=== PATIENT | male | born 1965 | race American Indian/Alaskan Native ===

== ENCOUNTER 2021-03-07 23:35 | Inpatient (IN) | payer OTHER ==
[2021-03-08] MEDS ORDERED: HYDROcodone/ACETAMINOPHEN 5-325 MG TAB PO STA (05:36)
--- NOTE | 2021-03-08 07:00 | Emergency Department Report ---
<GIO SHETTY - Last Filed: 03/08/21 07:40> ED General Adult HPI - General Chief complaint: Headache Stated complaint: WEAKNESS/MIGRAINE/LT LEG SWOLLEN Time Seen by Provider: 03/08/21 05:38 Source: patient Mode of arrival: Ambulatory Limitations: No Limitations - History of Present Illness Initial comments: 55-year-old obese -[place] Citizen male with a complex car medical problems including diabetes, hypertension,, HIV, hyperparathyroidism, migraine, venous insufficiency. Presents emerge department complaining of pain swelling to the left lower extremity after a venous correction procedure which was done about a week or 2 ago. States that after the area was cauterized he began to have some pain but and throbbing now is red swollen and tender with some mild warmth but he reports no fever, chills, sweats no chest pain or palpitation. No known history of any DVTs very suspicious at this present time due to the amount of pain that radiated up towards his calf as well. Symptoms get worse with ambulation. - Related Data Allergies Allergy/AdvReac Type Severity Reaction Status Date / Time No Known Allergies Allergy Verified 06/26/16 04:47 ED Review of Systems Comment: All other systems reviewed and negative ED Past Medical Hx - Past Medical History Previous Medical History?: Yes Hx Hypertension: Yes Hx Diabetes: Yes Hx Asthma: Yes Hx HIV: Yes - Surgical History Past Surgical History?: Yes Additional Surgical History: LEFT FOOT - Social History Smoking Status: Never Smoker Substance Use Type: None ED Physical Exam - General Limitations: No Limitations General appearance: alert, in no apparent distress - Head Head exam: Present: atraumatic, normocephalic - Eye Eye exam: Present: normal appearance - ENT ENT exam: Present: mucous membranes moist - Neck Neck exam: Present: normal inspection - Respiratory Respiratory exam: Present: normal lung sounds bilaterally. Absent: respiratory distress - Cardiovascular Cardiovascular Exam: Present: regular rate, normal rhythm. Absent: systolic mu rmur, diastolic murmur, rubs, gallop - GI/Abdominal GI/Abdominal exam: Present: soft, normal bowel sounds - Rectal Rectal exam: Present: deferred - Extremities Exam Extremities exam: Present: normal inspection, tenderness, joint swelling, calf tenderness - Expanded Lower Extremity Exam Left Lower Leg exam: Present: full ROM, tenderness, swelling, erythema, Rubina's sign. Absent: abrasion, laceration, ecchymosis, deformity Ankle exam: Present: normal inspection Neuro vascular tendon exam: Absent: pulse deficit, sensory deficit, tendon deficit, extremity cold to touch 1 - Redness to this region with on the relation with some warmth. There is pain with Homans' sign however there is no cord sign. Pulses 2+2 to the dorsalis pedis and posterior tibialis. Capillary refills appear to be brisk patient is wearing black toenail peruvian this was assessed on skin. - Back Exam Back exam: Present: normal inspection. Absent: CVA tenderness (R), CVA tenderness (L) - Neurological Exam Neurological exam: Present: alert, oriented X3, CN II-XII intact, normal gait - Psychiatric Psychiatric exam: Present: normal affect, normal mood - Skin Skin exam: Present: warm, dry, intact, normal color. Absent: rash ED Medical Decision Making - Medical Decision Making 30-year-old male pain swelling to left lower extremity with warmth following a venous procedure. Possibility of a DVT is present. The patient is on blood thinners already so this may be unlikely as he may be dealing with his vasculitis. Still pending is the ultrasound. We will sign the patient out to my colleague Jose who will evaluate the ultrasound and definitive diagnosis. Diagnosis at this present time is either a DVT or a vasculitis/thrombophlebitis ED Disposition Clinical Impression: Left leg cellulitis Sepsis Qualifiers: Sepsis type: sepsis due to unspecified organism Sepsis acute organ dysfunction status: without acute organ dysfunction Qualified Code(s): A41.9 - Sepsis, unspecified organism Disposition: DC-09 OP ADMIT IP TO THIS HOSP Is pt being admited?: No Does the pt Need Aspirin: No Condition: Stable Referrals: PRIMARY CARE, [Primary Care Provider] - 3-5 Days <JOSE JO - Last Filed: 03/08/21 10:22> ED General Adult HPI - History of Present Illness Initial comments: This is a 55-year-old male nontoxic, well nourished in appearance, no acute signs of distress presents to the ED with c/o of left leg pain and swelling with redness times several days. Patient does have history of venous insufficiency and had a procedure 4 years ago. Patient denies any procedure 2 weeks ago. Patient otherwise denies any trauma or injuries. Patient denies any history of DVTs. Patient agrees to chills. Past medical history also is HIV. Patient denies any chest pain, shortness of breath, fever, chills, nausea, vomiting, headache, stiff neck, numbness or tingling. -: days(s) Location: lower extremity Radiation: non-radiation Severity scale (0 -10): 8 Quality: aching Consistency: constant Improves with: none Worsens with: none Associated Symptoms: denies other symptoms. denies: confusion, chest pain, cough, diaphoresis, fever/chills, headaches, loss of appetite, malaise, nausea/vomiting, rash, seizure, shortness of breath, syncope, weakness Treatments Prior to Arrival: none ED Review of Systems ROS: Stated complaint: WEAKNESS/MIGRAINE/LT LEG SWOLLEN Other details as noted in HPI Constitutional: chills. denies: fever Eyes: denies: eye pain, eye discharge, vision change ENT: denies: ear pain, throat pain Respiratory: denies: cough, shortness of breath, wheezing Cardiovascular: denies: chest pain, palpitations Endocrine: no symptoms reported Gastrointestinal: denies: abdominal pain, nausea, diarrhea Genitourinary: denies: urgency, dysuria Musculoskeletal: denies: back pain, joint swelling, arthralgia Skin: denies: rash, lesions Neurological: denies: headache, weakness, paresthesias Psychiatric: denies: anxiety, depression Hematological/Lymphatic: denies: easy bleeding, easy bruising ED Physical Exam - General General appearance: alert, in no apparent distress - Head Head exam: Present: atraumatic, normocephalic - Eye Eye exam: Present: normal appearance - ENT ENT exam: Present: normal exam - Neck Neck exam: Present: normal inspection, full ROM. Absent: lymphadenopathy - Respiratory Respiratory exam: Present: normal lung sounds bilaterally. Absent: respiratory distress, wheezes, rales, rhonchi, stridor, chest wall tenderness, accessory muscle use, decreased breath sounds, prolonged expiratory - Cardiovascular Cardiovascular Exam: Present: normal rhythm, tachycardia, normal heart sounds. Absent: irregular rhythm, systolic murmur, diastolic murmur, rubs, gallop - GI/Abdominal GI/Abdominal exam: Present: soft, normal bowel sounds. Absent: distended, tenderness - Rectal Rectal exam: Present: deferred - Extremities Exam Extremities exam: Present: normal inspection, full ROM, tenderness, normal capillary refill, pedal edema, joint swelling, calf tenderness - Expanded Lower Extremity Exam Left Hip exam: Present: normal inspection, full ROM. Absent: tenderness, swelling Upper Leg exam: Present: normal inspection, full ROM. Absent: tenderness, swelling Knee exam: Present: normal inspection, full ROM. Absent: tenderness, swelling Lower Leg exam: Present: full ROM, tenderness, swelling, erythema, Rubina's sign. Absent: crepidus, dislocation, palpable cord Ankle exam: Present: normal inspection, full ROM, swelling. Absent: tenderness, abrasion, laceration, ecchymosis, deformity, crepidus, dislocation, erythema, anterior draw sign Foot/Toe exam: Present: normal inspection, full ROM. Absent: tenderness, swelling Neuro vascular tendon exam: Present: no vascular compromise Gait: Positive: observed and limited by pain 1 - Cellulitis with pain and swelling - Back Exam Back exam: Present: normal inspection - Neurological Exam Neurological exam: Present: alert, oriented X3 - Psychiatric Psychiatric exam: Present: normal affect, normal mood - Skin Skin exam: Present: warm, dry, intact, normal color. Absent: rash ED Course Vital Signs 03/08/21 03/08/21 00:39 08:19 Temperature 99.9 F H 99.8 F H Pulse Rate 125 H 118 H Respiratory 18 19 Rate Blood Pressure 144/88 Blood Pressure 154/92 [Right] O2 Sat by Pulse 95 94 Oximetry - Reevaluation(s) Reevaluation #1: 03/08/21 08:17 Patient was originally seen by Getachew Shetty and was signed out to me for pending Doppler study. I reentered the patient's room, patient is tachycardic with fever and left leg there is swelling with surrounding cellulitis noted. Sepsis work-up will be ordered at this time. Patient is speaking in full sentences with no signs of distress noted. - Consultations Consultation #1: 03/08/21 09:46 Patient has been consulted with Dr. Cota (hospitalist) about patient h istory, physical exam, and labs and accepts patient to services for admission. ED Medical Decision Making - Lab Data Result diagrams: 03/08/21 08:39 03/08/21 08:39 Lab Results 03/08/21 03/08/21 03/08/21 Range/Units 08:39 08:39 08:39 WBC 14.7 H (4.5-11.0) K/mm3 RBC 4.63 (3.65-5.03) M/mm3 Hgb 14.4 (11.8-15.2) gm/dl Hct 41.5 (35.5-45.6) % MCV 90 (84-94) fl MCH 31 (28-32) pg MCHC 35 H (32-34) % RDW 12.9 L (13.2-15.2) % Plt Count 231 (140-440) K/mm3 Sodium 135 L (137-145) mmol/L Potassium 3.6 (3.6-5.0) mmol/L Chloride 98.5 (98-107) mmol/L Carbon Dioxide 24 (22-30) mmol/L Anion Gap 16 mmol/L BUN 18 (9-20) mg/dL Creatinine 1.0 (0.8-1.3) mg/dL Estimated GFR > 60 ml/min BUN/Creatinine Ratio 18 % Glucose 113 H (75-100) mg/dL Lactic Acid 1.10 (0.7-2.0) mmol/L Calcium 8.6 (8.4-10.2) mg/dL Total Bilirubin 0.90 (0.1-1.2) mg/dL AST 40 (5-40) units/L ALT 35 (7-56) units/L Alkaline Phosphatase 76 (35-129) units/L Total Protein 7.9 (6.3-8.2) g/dL Albumin 3.9 (3.9-5) g/dL Albumin/Globulin Ratio 1.0 % - Radiology Data [facility] [address] [place] [address] Vascular Lab Report Signed Patient: CAMILLE PEDRO MR#: [id number] : 1965 Acct:[id number] Age/Sex: 55 / M ADM Date: 03/07/21 Loc: ED Attending Dr: Lai sesay Physician: KELSEY GARCIA Date of Service: 03/08/21 Procedure(s): VL venous duplex LE LT Accession Number(s): [id number] cc: KELSEY GARCIA DUPLEX DOPPLER LOWER EXTREMITY VEINS, LEFT INDICATION / CLINICAL INFORMATION: swelling and rednesss. TECHNIQUE: Duplex doppler imaging was performed through the veins of the left lower extremity using venous compression and other maneuvers. COMPARISON: None available. FINDINGS: LEFT COMMON FEMORAL VEIN: Negative. LEFT FEMORAL VEIN: Negative. LEFT POPLITEAL VEIN: Negative. LEFT CALF VEINS: Negative. ADDITIONAL FINDINGS: None. IMPRESSION: 1. No sonographic evidence for DVT in the left lower extremity. Signer Name: Davon Malagon MD Signed: 03/08/2021 8:07 AM Workstation Name: [id number] Transcribed By: CH Dictated By: DAVON MALAGON Electronically Authenticated By: DAVON MALAGON Signed Date/Time: 03/08/21806 DD/ 6 TD/TT: [facility] [address] [place] [address] XRay Report Signed Patient: CAMILLE PEDRO MR#: [id number] : 1965 Acct:[id number] Age/Sex: 55 / M ADM Date: 03/07/21 Loc: ED Attending Dr: Ordering Physician: JOSE JO NP Date of Service: 03/08/21 Procedure(s): XR tibia fibula 2V LT Accession Number(s): [id number] cc: JOSE JO NP Fluoro Time In Minutes: LEFT TIBIA-FIBULA 2 VIEW(S) INDICATION / CLINICAL INFORMATION: left leg pain and swelling COMPARISON: None available. FINDINGS: BONES / JOINT (S): No acute fracture or subluxation. Moderate tricompartmental arthrosis noted at the knee. Prior subtalar arthrodesis noted. SOFT TISSUES: Generalized soft tissue swelling and edema noted throughout the visualized leg ADDITIONAL FINDINGS: None. Signer Name: Davon Malagon MD Signed: 03/08/2021 9:15 AM Workstation Name: [id number] Transcribed By: KANDICE Dictated By: DAVON MALAGON Electronically Authenticated By: DAVON MALAGON Signed Date/Time: 03/08/21914 DD/ 2 TD/TT: [facility] [address] [place] [address] XRay Report Signed Patient: CAMILLE PEDRO MR#: [id number] : 1965 Acct:[id number] Age/Sex: 55 / M ADM Date: 03/07/21 Loc: ED Attending Dr: Ordering Physician: JOSE JO NP Date of Service: 03/08/21 Procedure(s): XR chest routine 2V Accession Number(s): [id number] cc: JOSE JO NP Fluoro Time In Minutes: CHEST 2 VIEWS INDICATION / CLINICAL INFORMATION: sepsis. COMPARISO N: None available. FINDINGS: SUPPORT DEVICES: None. HEART / MEDIASTINUM: No significant abnormality. LUNGS / PLEURA: No significant pulmonary or pleural abnormality. No pneumothorax. No confluent infiltrates. ADDITIONAL FINDINGS: No significant additional findings. IMPRESSION: 1. No acute findings. Signer Name: Davon Malagon MD Signed: 03/08/2021 9:12 AM Workstation Name: [id number] Transcribed By: Dictated By: DAVON MALAGON Electronically Authenticated By: DAVON MALAGON Signed Date/Time: 03/08/21911 DD/ 0 TD/TT: - Medical Decision Making 55-year-old male that presents with cellulitis to left lower extremity. Patient is stable and was examined by me. Patient originally seen by Gio Shetty and was signed out to me for pending ultrasound report for DVT. DVT studies are negative. Has anterior from my physical exam shows that patient has left lower extremity cellulitis. Patient is tachycardic with fever. Sepsis work-up with IV medications has administered and labs ordered. Patient admitted with hospitalist. At time of admission, the patient does not seem toxic or ill in appearance. No acute signs of distress noted. Patient agrees to admission treatment plan of care. No further questions noted by the patient. Critical care attestation.: If time is entered above; I have spent that time in minutes in the direct care of this critically ill patient, excluding procedure time. ED Disposition Is pt being admited?: Yes
--- NOTE | 2021-03-08 08:12 | Vascular Lab Report ---
DUPLEX DOPPLER LOWER EXTREMITY VEINS, LEFT INDICATION / CLINICAL INFORMATION: swelling and rednesss. TECHNIQUE: Duplex doppler imaging was performed through the veins of the left lower extremity using venous compr ession and other maneuvers. COMPARISON: None available. FINDINGS: LEFT COMMON FEMORAL VEIN: Negative. LEFT FEMORAL VEIN: Negative. LEFT POPLITEAL VEIN: Negative. LEFT CALF VEINS: Negative. ADDITIONAL FINDINGS: None. IMPRESSION: 1. No sonographic evidence for DVT in the left lower extremity. Signer Name: Davon Victor MD Signed: 03/08/2021 8:07 AM Workstation Name: [email or web address]
[2021-03-08] MEDS ORDERED: SODIUM CHLORIDE 0.9% 1000 ML IV SOLN IV ONE (08:18)
[2021-03-08] MEDS ORDERED: IBUPROFEN 800 MG TAB PO ONE (08:22)
[2021-03-08] MEDS ORDERED: MORPHINE 2 MG/1 ML INJ IV ONE (08:22)
[2021-03-08 09:16] LABS: Hematocrit 41.5 % (35.5-45.6); Hemoglobin 14.4 gm/dl (11.8-15.2); Mean Corpuscular HGB Conc 35 % (32-34); Mean Corpuscular Volume 90 fl (84-94); Platelet Count 231 K/mm3 (140-440); Red Blood Count 4.63 M/mm3 (3.65-5.03); Red Cell Distribution Width 12.9 % (13.2-15.2)
--- NOTE | 2021-03-08 09:16 | XRay Report ---
CHEST 2 VIEWS INDICATION / CLINICAL INFORMATION: sepsis. COMPARISON: None available. FINDINGS: SUPPORT DEVICES: None. HEART / MEDIASTINUM: No significant abnormality. LUNGS / PLEURA: No significant pulmonary or pleural abnormality. No pneumothorax. No confluent infilt rates. ADDITIONAL FINDINGS: No significant additional findings. IMPRESSION: 1. No acute findings. Signer Name: Davon Victor MD Signed: 03/08/2021 9:12 AM Workstation Name: [id number]
--- NOTE | 2021-03-08 09:19 | XRay Report ---
LEFT TIBIA-FIBULA 2 VIEW(S) INDICATION / CLINICAL INFORMATION: left leg pain and swelling COMPARISON: None available. FINDINGS: BONES / JOINT(S): No acute fracture or subluxation. Moderate tricompartmental arthrosis noted at the knee. Prior subtalar arthrodesis noted. SOFT TISSUES: Generalized soft tissue swelling and edema noted throughout the visualized leg ADDITIONAL FINDINGS: None. Signer Name: Davon Victor MD Signed: 03/08/2021 9:15 AM Workstation Name: [id number]
[2021-03-08 10:01] LABS: Alanine Aminotransferase 35 units/L (7-56); Albumin 3.9 g/dL (3.9-5); BUN/Creatinine Ratio 18; Blood Urea Nitrogen 18 mg/dL (9-20); Calcium 8.6 mg/dL (8.4-10.2); Hemolysis Index 7
[2021-03-08 10:47] LABS: Total Cells Counted 100
[2021-03-08 10:48] LABS: Platelet Estimate Consistent w Auto; RBC Morphology Normal
--- NOTE | 2021-03-08 12:08 | History and Physical Report ---
History of Present Illness Chief complaint: My left leg is red and it hurts a little History of present illness: 55 YO Male with HTN, DM, Asthma, HIV, Obesity Hypoventilation Syndrome, Hyperparathyroidism, Migraine HUDSON, PVD presents to ED for evaulation. Patient reports "my left leg is red and it hurts". Patient states that he has experienced swelling and redness of his left leg over the past 1 week with worsening symptoms over the past 2 days. Patient reports having a vascular surgery procedure to the left lower extremity approximately 1 week ago. Patient reports the pain to the left leg is 3/10, constant, not with exertion, not relieved with rest. Patient acknowledges redness and swelling to the left leg. Patient also acknowledges decreased exercise tolerance. Patient transported to [facility] via private vehicle for further care and evaluation of the aforementioned symptoms. The patient was seen and evaluated in the emergency department. All lab and imaging studies reviewed. Patient found to have cellulitis of the left lower extremity, sepsis, as well as symptoms consistent with CHF decompensation. Patient admitted to medical floor and initiated on sepsis protocol as well as CHF protocol. Patient denies fever, chills, chest pain, palpitation, productive cough, skin rash, recent ill contacts, or known exposure to COVID-19. No prior admission for review. No medication listed at time of admission for reconciliation. Past History Past Medical History: diabetes, HIV/AIDS, hypertension, other (See HPI) Past Surgical History: Other (Left leg surgery) Social history: single. denies: smoking, alcohol abuse, prescription drug abuse Family history: diabetes, hypertension Medications and Allergies Allergies Allergy/AdvReac Type Severity Reaction Status Date / Time No Known Allergies Allergy Verified 06/26/16 04:47 Home Medications Medication Instructions Recorded Confirmed Last Taken Type Amlodipine Besylate/Benazepril 1 each PO QDAY 03/08/21 03/08/21 Unknown History [Amlodipine-Benazepril 5-10 mg] AtorvaSTATin [Lipitor] 10 mg PO QHS 03/08/21 03/08/21 Unknown History Bictegrav/Emtricit/Tenofov Ala 1 each PO QDAY 03/08/21 03/08/21 Unknown History [Biktarvy 50-200-25 mg (Nf)] Meloxicam [Mobic] 15 mg PO QDAY 05/16/21 05/16/21 Unknown History Review of Systems Constitutional: weakness, no weight loss, no weight gain, no fever Ears, nose, mouth and throat: no ear pain, no tinnitis, no decreased hearing, no nose pain, no nasal congestion, no nasal discharge Cardiovascular: decreased exercise tolerance, no chest pain, no palpitations, no lightheadedness Respiratory: no cough, no cough with sputum, no excessive sputum, no hemoptysis Gastrointestinal: no abdominal pain, no nausea, no vomiting, no diarrhea, no constipation, no change in bowel habits Genitourinary Male: no hematuria, no flank pain, no discharge, no urinary frequency, no urinary hesitancy Rectal: no pain, no incontinence, no bleeding Musculoskeletal: no neck stiffness, no shooting arm pain, no low back pain, no shooting leg pain, no leg numbness/tingling Integumentary: redness, no wounds, no jaundice, no boils, no darkening of skin, no depigmentation Neurological: no head injury, no transient paralysis, no paralysis, no parathesias, no numbness, no tingling Psychiatric: no anxiety, no memory loss, no change in sleep habits, no insomnia, no hypersomnia, no change in appetite, no change in libido, no hallucinations Endocrine: no cold intolerance, no heat intolerance, no polyphagia, no excessive thirst, no polyuria, no flushing Hematologic/Lymphatic: no easy bruising, no easy bleeding Allergic/Immunologic: no urticaria, no allergic rhinitis, no wheezing Exam - Constitutional Vitals: Temp Pulse Resp BP Pulse Ox 98.8 F 91 H 16 130/77 96 03/08/21 11:37 03/08/21 11:37 03/08/21 11:37 03/08/21 11:37 03/08/21 11:37 General appearance: Present: mild distress, obese - EENT Eyes: Present: PERRL ENT: hearing intact, clear oral mucosa - Neck Neck: Present: supple, normal ROM - Respiratory Respiratory effort: normal Respiratory: bilateral: CTA - Cardiovascular Heart Sounds: Present: S1 & S2. Absent: rub, click - Extremities Extremities: pulses symmetrical, No edema Peripheral Pulses: abnormal (Capillary refill greater than 3.5 seconds) - Abdominal General gastrointestinal: Present: soft, non-tender, non-distended, normal bowel sounds Male genitourinary: Present: normal - Integumentary Integumentary: Present: clear, warm, dry - Musculoskeletal Musculoskeletal: gait normal, strength equal bilaterally - Psychiatric Psychiatric: appropriate mood/affect, intact judgment & insight - Neurologic Neurologic: CNII-XII intact, moves all extremities Results - Labs CBC & Chem 7: 03/08/21 08:39 03/08/21 08:39 Labs: Abnormal lab results 03/08/21 03/08/21 Range/Units 08:39 08:39 WBC 14.7 H (4.5-11.0) K/mm3 MCHC 35 H (32-34) % RDW 12.9 L (13.2-15.2) % Seg Neuts % (Manual) 86.0 H (40.0-70.0) % Lymphocytes % (Manual) 8.0 L (13.4-35.0) % Seg Neutrophils # Man 12.6 H (1.8-7.7) K/mm3 Monocytes # (Manual) 0.9 H (0.0-0.8) K/mm3 Sodium 135 L (137-145) mmol/L Glucose 113 H (75-100) mg/dL Assessment and Plan - Patient Problems (1) Sepsis Current Visit: Yes Status: Acute Qualifiers: Sepsis type: sepsis due to unspecified organism Sepsis acute organ dysfunction status: without acute organ dysfunction Qualified Code(s): A41.9 - Sepsis, unspecified organism Plan to address problem: Sepsis protocol: Chest x-ray, CBC, BMP, urinalysis, IV antibiotic therapy, IV fluid resuscitation therapy, maintain mean arterial pressure greater than or equal to 65, serial lactic acid level. (2) Obesity hypoventilation syndrome Current Visit: Yes Status: Acute Plan to address problem: Balanced diet, increase physical activity at discharge. (3) CHF (congestive heart failure) Current Visit: Yes Status: Suspected Qualifiers: Heart failure type: systolic Heart failure chronicity: acute Qualified Code(s): I50.21 - Acute systolic (congestive) heart failure Plan to address problem: Strict I/O, monitor urine output every shift, daily weight, afterload reduction, blood pressure control, BNP, echocardiogram ordered and is pending at time of admission. (4) HIV (human immunodeficiency virus infection) Current Visit: Yes Status: Acute Qualifiers: HIV symptom status: currently asymptomatic, with history of HIV-related illness Qualified Code(s): B20 - Human immunodeficiency virus [HIV] disease Plan to address problem: Outpatient infectious disease follow-up, continue antiretroviral therapy, supportive care. (5) Left leg cellulitis Current Visit: Yes Status: Acute Plan to address problem: IV antibiotic therapy, left lower extremity duplex, supportive care, pain control, (6) HTN (hypertension) Current Visit: Yes Status: Acute Qualifiers: Hypertension type: essential hypertension Qualified Code(s): I10 - Essential (primary) hypertension Plan to address problem: Monitor blood pressure every shift, continue medical management. (7) Diabetes Current Visit: Yes Status: Acute Plan to address problem: Consistent carbohydrate diet, sliding scale insulin therapy, hypoglycemia protocol. (8) DVT prophylaxis Current Visit: Yes Status: Acute Plan to address problem: SCD to bilateral lower extremities while in bed, patient is ambulatory
[2021-03-08 12:35] LABS: Bilirubin,Urine NEG (Negative); Blood,Urine NEG (Negative); Color,Urine Yellow (Yellow)
[2021-03-08] MEDS ORDERED: HYDROmorphone 1 MG/1 ML INJ IV PRN (12:35)
[2021-03-08] MEDS ORDERED: ACETAMINOPHEN 325 MG TAB PO PRN (12:35)
[2021-03-09] MEDS ORDERED: NON-FORMULARY EACH (Bictegrav/Emtricit/Tenofov Ala 1 EACH Tablet) PO SCH (10:00)
[2021-03-09] MEDS ORDERED: NON-FORMULARY EACH (Meloxicam [Mobic] 15 MG Tablet) PO SCH (10:00)
[2021-03-09 10:40] LABS: Basophils # (Auto) 0.1 K/mm3 (0.0-0.1); Basophils % (Auto) 0.5 % (0.0-1.8); Eosinophils % (Auto) 0.3 % (0.0-4.3); Hematocrit 38.8 % (35.5-45.6); Hemoglobin 13.1 gm/dl (11.8-15.2); Lymphocytes # (Auto) 1.8 K/mm3 (1.2-5.4); Lymphocytes % (Auto) 16.8 % (13.4-35.0); Mean Corpuscular HGB Conc 34 % (32-34); Mean Corpuscular Volume 92 fl (84-94); Monocytes # (Auto) 0.9 K/mm3 (0.0-0.8); Monocytes % (Auto) 8.3 % (0.0-7.3); Platelet Count 237 K/mm3 (140-440); Red Blood Count 4.22 M/mm3 (3.65-5.03)
[2021-03-09 10:48] LABS: BUN/Creatinine Ratio 14; Blood Urea Nitrogen 11 mg/dL (9-20); Calcium 8.5 mg/dL (8.4-10.2); Hemolysis Index 1
[2021-03-09] MEDS: LISINOPRIL 10 MG TAB PO SCH (11:00)
[2021-03-09] MEDS: DOLUTEGRAVIR 50 MG TAB PO SCH (11:00)
[2021-03-09] MEDS: amLODIPine 5 MG TAB PO SCH (11:00)
[2021-03-09] MEDS: EMTRICITABINE 200 MG CAP PO SCH (11:00)
[2021-03-09] MEDS: TENOFOVIR 300 MG TAB PO SCH (11:00)
--- NOTE | 2021-03-09 12:02 | Progress Note ---
Assessment and Plan Assessment and plan: 55 YO Male with HTN, DM, Asthma, HIV, Obesity Hypoventilation Syndrome, Hyperparathyroidism, Migraine HUDSON, PVD presents to ED for evaulation. Patient reports "my left leg is red and it hurts". Patient states that he has experienced swelling and redness of his left leg over the past 1 week with worsening symptoms over the past 2 days. Patient reports having a vascular surgery procedure to the left lower extremity approximately 1 week ago. Patient reports the pain to the left leg is 3/10, constant, not with exertion, not relieved with rest. Patient acknowledges redness and swelling to the left leg. Patient also acknowledges decreased exercise tolerance. Patient transported to [facility] via private vehicle for further care and evaluation of the aforementioned symptoms. The patient was seen and evaluated in the emergency department. All lab and imaging studies reviewed. Patient found to have cellulitis of the left lower extremity, sepsis, as well as symptoms consistent with CHF decompensation. Patient admitted to medical floor and initiated on sepsis protocol as well as CHF protocol. Patient denies fever, chills, chest pain, palpitation, productive cough, skin rash, recent ill contacts, or known exposure to COVID-19. No prior admission for review. No medication listed at time of admission for reconciliation. 03/09: Continue supportive care. Will obtain ID consult. Echocardiogram has been ordered for further evaluation. We will also check CD4 count to understand HIV status. Imaging studies reviewed no DVT noted. No fractures. Likely underlying diastolic heart failure. Anticipate discharge in a.m. following evaluation by ID. May benefit from physical therapy. (1) Sepsis Current Visit: Yes Status: Acute Qualifiers: Sepsis type: sepsis due to unspecified organism Sepsis acute organ dysfunction status: without acute organ dysfunction Qualified Code(s): A41.9 - Sepsis, unspecified organism Plan to address problem: Sepsis protocol: Chest x-ray, CBC, BMP, urinalysis, IV antibiotic therapy, IV fluid resuscitation therapy, maintain mean arterial pressure greater than or equal to 65, serial lactic acid level. (2) Obesity hypoventilation syndrome Current Visit: Yes Status: Acute Plan to address problem: Balanced diet, increase physical activity at discharge. 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 (4) HIV (human immunodeficiency virus infection) Current Visit: Yes Status: Acute Qualifiers: HIV symptom status: currently asymptomatic, with history of HIV-related illness Qualified Code(s): B20 - Human immunodeficiency virus [HIV] disease Plan to address problem: Outpatient infectious disease follow-up, continue antiretroviral therapy, supportive care. (5) Left leg cellulitis Current Visit: Yes Status: Acute Plan to address problem: IV antibiotic therapy, left lower extremity duplex, supportive care, pain control, (6) HTN (hypertension) Current Visit: Yes Status: Acute Qualifiers: Hypertension type: essential hypertension Qualified Code(s): I10 - Essential (primary) hypertension Plan to address problem: Monitor blood pressure every shift, continue medical management. (7) Diabetes Current Visit: Yes Status: Acute Plan to address problem: Consistent carbohydrate diet, sliding scale insulin therapy, hypoglycemia protocol. (8) DVT prophylaxis Current Visit: Yes Status: Acute Plan to address problem: SCD to bilateral lower extremities while in bed, patient is ambulatory History Interval history: Patient seen and examined, no new distress. Hospitalist Physical - Physical exam Narrative exam: General appearance: Present: mild distress, obese - EENT Eyes: Present: PERRL ENT: hearing intact, clear oral mucosa - Neck Neck: Present: supple, normal ROM - Respiratory Respiratory effort: normal Respiratory: bilateral: CTA - Cardiovascular Heart Sounds: Present: S1 & S2. Absent: rub, click - Extremities Extremities: pulses symmetrical, No edema Peripheral Pulses: abnormal (Capillary refill greater than 3.5 seconds) - Abdominal General gastrointestinal: Present: soft, non-tender, non-distended, normal bowel sounds Male genitourinary: Present: normal - Integumentary Integumentary: Present: clear, warm, dry - Musculoskeletal Musculoskeletal: gait normal, strength equal bilaterally - Psychiatric Psychiatric: appropriate mood/affect, intact judgment & insight - Neurologic Neurologic: CNII-XII intact, moves all extremities - Constitutional Vitals: Temp Pulse Resp BP Pulse Ox 98.7 F 96 H 20 145/88 97 03/09/21 11:07 03/09/21 11:07 03/09/21 11:07 03/09/21 11:07 03/09/21 11:07 General appearance: Present: mild distress, obese Results - Labs CBC & Chem 7: 03/09/21 10:17 03/09/21 10:17 Labs: Laboratory Last Values WBC 10.8 K/mm3 (4.5-11.0) 03/09/21 10:17 RBC 4.22 M/mm3 (3.65-5.03) 03/09/21 10:17 Hgb 13.1 gm/dl (11.8-15.2) 03/09/21 10:17 Hct 38.8 % (35.5-45.6) 03/09/21 10:17 MCV 92 fl (84-94) 03/09/21 10:17 MCH 31 pg (28-32) 03/09/21 10:17 MCHC 34 % (32-34) 03/09/21 10:17 RDW 13.0 % (13.2-15.2) L 03/09/21 10:17 Plt Count 237 K/mm3 (140-440) 03/09/21 10:17 Lymph % (Auto) 16.8 % (13.4-35.0) 03/09/21 10:17 [place] % (Auto) 8.3 % (0.0-7.3) H 03/09/21 10:17 Eos % (Auto) 0.3 % (0.0-4.3) 03/09/21 10:17 Baso % (Auto) 0.5 % (0.0-1.8) 03/09/21 10:17 Lymph # (Auto) 1.8 K/mm3 (1.2-5.4) 03/09/21 10:17 [place] # (Auto) 0.9 K/mm3 (0.0-0.8) H 03/09/21 10:17 Eos # (Auto) 0.0 K/mm3 (0.0-0.4) 03/09/21 10:17 Baso # (Auto) 0.1 K/mm3 (0.0-0.1) 03/09/21 10:17 Add Manual Diff Complete 03/08/21 08:39 Total Counted 100 03/08/21 08:39 Seg Neutrophils % 74.1 % (40.0-70.0) H 03/09/21 10:17 Seg Neuts % (Manual) 86.0 % (40.0-70.0) H 03/08/21 08:39 Lymphocytes % (Manual) 8.0 % (13.4-35.0) L 03/08/21 08:39 Monocytes % (Manual) 6.0 % (0.0-7.3) 03/08/21 08:39 Nucleated RBC % Not Reportable 03/08/21 08:39 Seg Neutrophils # 8.0 K/mm3 (1.8-7.7) H 03/09/21 10:17 Seg Neutrophils # Man 12.6 K/mm3 (1.8-7.7) H 03/08/21 08:39 Band Neutrophils # 0.0 K/mm3 03/08/21 08:39 Lymphocytes # (Manual) 1.2 K/mm3 (1.2-5.4) 03/08/21 08:39 Abs React Lymphs (Man) 0.0 K/mm3 03/08/21 08:39 Monocytes # (Manual) 0.9 K/mm3 (0.0-0.8) H 03/08/21 08:39 Eosinophils # (Manual) 0.0 K/mm3 (0.0-0.4) 03/08/21 08:39 Basophils # (Manual) 0.0 K/mm3 (0.0-0.1) 03/08/21 08:39 Metamyelocytes # 0.0 K/mm3 03/08/21 08:39 Myelocytes # 0.0 K/mm3 03/08/21 08:39 Promyelocytes # 0.0 K/mm3 03/08/21 08:39 Blast Cells # 0.0 K/mm3 03/08/21 08:39 WBC Morphology Not Reportable 03/08/21 08:39 Hypersegmented Neuts Not Reportable 03/08/21 08:39 Hyposegmented Neuts Not Reportable 03/08/21 08:39 Hypogranular Neuts Not Reportable 03/08/21 08:39 Smudge Cells Not Reportable 03/08/21 08:39 Toxic Granulation Not Reportable 03/08/21 08:39 Toxic Vacuolation Not Reportable 03/08/21 08:39 Dohle Bodies Not Reportable 03/08/21 08:39 Pelger-Huet Anomaly Not Reportable 03/08/21 08:39 Jose Rods Not Reportable 03/08/21 08:39 Platelet Estimate Consistent w auto 03/08/21 08:39 Clumped Platelets Not Reportable 03/08/21 08:39 Plt Clumps, EDTA Not Reportable 03/08/21 08:39 Large Platelets Not Reportable 03/08/21 08:39 Giant Platelets Not Reportable 03/08/21 08:39 Platelet Satelliting Not Reportable 03/08/21 08:39 Plt Morphology Comment Not Reportable 03/08/21 08:39 RBC Morphology Normal 03/08/21 08:39 Dimorphic RBCs Not Reportable 03/08/21 08:39 Polychromasia Not Reportable 03/08/21 08:39 Hypochromasia Not Reportable 03/08/21 08:39 Poikilocytosis Not Reportable 03/08/21 08:39 Anisocytosis Not Reportable 03/08/21 08:39 Microcytosis Not Reportable 03/08/21 08:39 Macrocytosis Not Reportable 03/08/21 08:39 Spherocytes Not Reportable 03/08/21 08:39 Pappenheimer Bodies Not Reportable 03/08/21 08:39 Sickle Cells Not Reportable 03/08/21 08:39 Target Cells Not Reportable 03/08/21 08:39 Tear Drop Cells Not Reportable 03/08/21 08:39 Ovalocytes Not Reportable 03/08/21 08:39 Helmet Cells Not Reportable 03/08/21 08:39 [place] Bodies Not Reportable 03/08/21 08:39 [place] Rings Not Reportable 03/08/21 08:39 [place] Cells Not Reportable 03/08/21 08:39 Bite Cells Not Reportable 03/08/21 08:39 Crenated Cell Not Reportable 03/08/21 08:39 Elliptocytes Not Reportable 03/08/21 08:39 Acanthocytes (Spur) Not Reportable 03/08/21 08:39 Rouleaux Not Reportable 03/08/21 08:39 Hemoglobin C Crystals Not Reportable 03/08/21 08:39 Schistocytes Not Reportable 03/08/21 08:39 Malaria parasites Not Reportable 03/08/21 08:39 Solomon Bodies Not Reportable 03/08/21 08:39 Hem Pathologist Commnt No 03/08/21 08:39 Sodium 140 mmol/L (137-145) 03/09/21 10:17 Potassium 3.7 mmol/L (3.6-5.0) 03/09/21 10:17 Chloride 104.9 mmol/L (98-107) 03/09/21 10:17 Carbon Dioxide 27 mmol/L (22-30) 03/09/21 10:17 Anion Gap 12 mmol/L 03/09/21 10:17 BUN 11 mg/dL (9-20) 03/09/21 10:17 Creatinine 0.8 mg/dL (0.8-1.3) 03/09/21 10:17 Estimated GFR > 60 ml/min 03/09/21 10:17 BUN/Creatinine Ratio 14 % 03/09/21 10:17 Glucose 122 mg/dL (75-100) H 03/09/21 10:17 POC Glucose 119 mg/dL (70-105) H 03/08/21 21:06 Lactic Acid 1.20 mmol/L (0.7-2.0) 03/08/21 14:56 Calcium 8.5 mg/dL (8.4-10.2) 03/09/21 10:17 Total Bilirubin 0.90 mg/dL (0.1-1.2) 03/08/21 08:39 AST 40 units/L (5-40) 03/08/21 08:39 ALT 35 units/L (7-56) 03/08/21 08:39 Alkaline Phosphatase 76 units/L (35-129) 03/08/21 08:39 NT-Pro-B Natriuret Pep 19.50 pg/mL (0-900) 03/08/21 12:52 Total Protein 7.9 g/dL (6.3-8.2) 03/08/21 08:39 Albumin 3.9 g/dL (3.9-5) 03/08/21 08:39 Albumin/Globulin Ratio 1.0 % 03/08/21 08:39 Urine Color Yellow (Yellow) 03/08/21 Unknown Urine Turbidity Clear (Clear) 03/08/21 Unknown Urine pH 7.0 (5.0-7.0) 03/08/21 Unknown Ur Specific [place] 1.013 (1.003-1.030) 03/08/21 Unknown Urine Protein 30 mg/dl mg/dL (Negative) 03/08/21 Unknown Urine Glucose (UA) Neg mg/dL (Negative) 03/08/21 Unknown Urine Ketones Neg mg/dL (Negative) 03/08/21 Unknown Urine Blood Neg (Negative) 03/08/21 Unknown Urine Nitrite Neg (Negative) 03/08/21 Unknown Urine Bilirubin Neg (Negative) 03/08/21 Unknown Urine Urobilinogen 2.0 mg/dL (<2.0) 03/08/21 Unknown Ur Leukocyte Esterase Neg (Negative) 03/08/21 Unknown Urine WBC (Auto) 1.0 /HPF (0.0-6.0) 03/08/21 Unknown Urine RBC (Auto) 3.0 /HPF (0.0-6.0) 03/08/21 Unknown Blood Type A POSITIVE 03/08/21 12:52 Antibody Screen Negative 03/08/21 12:52 Microbiology: Microbiology 03/08/21 08:39 Peripheral/Venous Blood Culture - Preliminary NO GROWTH AFTER 24 HOURS 03/08/21 08:39 Peripheral/Venous Blood Culture - Preliminary NO GROWTH AFTER 24 HOURS Romero/IV: Voiding Method Toilet Active Medications - Current Medications Current Medications: Generic Name Dose Route Start Last Admin Trade Name Freq PRN Reason Stop Dose Admin Acetaminophen 650 mg 03/08/21 12:35 03/09/21 04:17 Acetaminophen 325 Mg Tab PO 650 mg Q6H PRN Administration Pain, Mild (1-3) Amlodipine Besylate 5 mg 03/09/21 10:00 03/09/21 11:00 Amlodipine 5 Mg Tab PO 5 mg QDAY FLAKITO Administration Atorvastatin Calcium 10 mg 03/08/21 22:00 03/08/21 23:10 Atorvastatin 10 Mg Tab PO 10 mg QHS FLAKITO Administration Emtricitabine 200 mg 03/09/21 10:00 03/09/21 11:00 Emtricitabine 200 Mg Cap PO 200 mg QDAY LFAKITO Administration Hydromorphone HCl 0.25 mg 03/08/21 12:35 Hydromorphone 1 Mg/1 Ml Inj IV Q4H PRN Pain, Moderate (4-6) Cefazolin Sodium 2 gm/ Sodium 100 mls @ 200 mls/hr 03/09/21 11:00 03/09/21 11:01 Chloride IV 200 mls/hr Q8HR FLAKITO Administration Protocol Lisinopril 10 mg 03/09/21 10:00 03/09/21 11:00 Lisinopril 10 Mg Tab PO 10 mg QDAY FLAKITO Administration Meloxicam 15 mg 03/09/21 10:00 Meloxicam 7.5 Mg Tab PO QDAY FLAKITO Tenofovir Disoproxil Fumarate 300 mg 03/09/21 10:00 03/09/21 11:00 Tenofovir 300 Mg Tab PO 300 mg QDAY FLAKITO Administration
[2021-03-09] MEDS: MELOXICAM 7.5 MG TAB PO SCH (14:59)
--- NOTE | 2021-03-09 16:10 | Consultation ---
History of Present Illness - Reason for Consult Consult date: 03/09/21 - History of Present Illness 55-year-old male past medical history HIV, hypertension, diabetes, PVD presented to the hospital complaining of left leg pain. He also complains of erythema of the leg as well. He also began approximate 1 week prior to admission and was acutely worse over the past 2 days. He complains of swelling as well. He had a vascular surgery procedure on the left lower extremity approximately 4 years prior to admission when his symptoms began. Pain is mild. He is on Biktarvy and well controlled. Afebrile since admission with a white count 14.7, which is improved to 10.8. Blood cultures no growth so far. Currently on Ancef. Imaging personally reviewed: Chest x-ray: No findings Tibia/fibula x-ray: Generalized soft tissue swelling and edema Duplex ultrasound: No DVT Echo: Mild diastolic dysfunction Review of Systems: Bold if positive, otherwise negative General: fevers, chills, rigors HEENT: visual disturbance, diplopia, eye pain Respiratory: cough, sputum, hemoptysis, shortness of breath Cardiovascular: chest pain, syncope Gastrointestinal: nausea, vomiting, diarrhea, abdominal pain Genitourinary: dysuria, hematuria, flank pain Musculoskeletal: neck pain, back pain, joint pain, edema Neurologic: headaches, seizures Hematologic: easy bruising or bleeding Endocrine: night sweats, acute weight loss Skin: rash, jaundice, redness Psychiatric: suicidal, homicidal ideation Past History Past Medical History: diabetes, HIV/AIDS, hypertension, other (See HPI) Past Surgical History: Other (Left leg surgery) Social history: single. denies: smoking, alcohol abuse, prescription drug abuse Family history: diabetes, hypertension Medications and Allergies Allergies Allergy/AdvReac Type Severity Reaction Status Date / Time No Known Allergies Allergy Verified 06/26/16 04:47 Home Medications Medication Instructions Recorded Confirmed Last Taken Type Amlodipine Besylate/Benazepril 1 each PO QDAY 03/08/21 03/08/21 Unknown History [Amlodipine-Benazepril 5-10 mg] AtorvaSTATin [Lipitor] 10 mg PO QHS 03/08/21 03/08/21 Unknown History Bictegrav/Emtricit/Tenofov Ala 1 each PO QDAY 03/08/21 03/08/21 Unknown History [Biktarvy 50-200-25 mg (Nf)] Meloxicam [Mobic] 15 mg PO QDAY 03/08/21 03/08/21 Unknown History Active Meds: Active Medications Acetaminophen (Acetaminophen 325 Mg Tab) 650 mg PO Q6H PRN PRN Reason: Pain, Mild (1-3) Last Admin: 03/09/21 04:17 Dose: 650 mg Documented by: Amlodipine Besylate (Amlodipine 5 Mg Tab) 5 mg PO QDAY [facility] Last Admin: 03/09/21 11:00 Dose: 5 mg Documented by: Atorvastatin Calcium (Atorvastatin 10 Mg Tab) 10 mg PO QHS [facility] Last Admin: 03/08/21 23:10 Dose: 10 mg Documented by: Emtricitabine (Emtricitabine 200 Mg Cap) 200 mg PO QDAY [facility] Last Admin: 03/09/21 11:00 Dose: 200 mg Documented by: Hydromorphone HCl (Hydromorphone 1 Mg/1 Ml Inj) 0.25 mg IV Q4H PRN PRN Reason: Pain, Moderate (4-6) Cefazolin Sodium 2 gm/ Sodium (Chloride) 100 mls @ 200 mls/hr IV Q8HR [facility]; Protocol Last Admin: 03/09/21 11:01 Dose: 200 mls/hr Documented by: Lisinopril (Lisinopril 10 Mg Tab) 10 mg PO QDAY [facility] Last Admin: 03/09/21 11:00 Dose: 10 mg Documented by: Meloxicam (Meloxicam 7.5 Mg Tab) 15 mg PO QDAY [facility] Last Admin: 03/09/21 14:59 Dose: 15 mg Documented by: Tenofovir Disoproxil Fumarate (Tenofovir 300 Mg Tab) 300 mg PO QDAY [facility] Last Admin: 03/09/21 11:00 Dose: 300 mg Documented by: Physical Examination - Physical Exam Narrative exam: Physical Exam: Constitutional: Alert, cooperative. No acute distress Head, Ears, Nose: Normocephalic, atraumatic. External ears, nose normal Eyes: Conjunctivae/corneas clear. No icterus. No ptosis. Neck: Supple, no meningeal signs Oral: dentition fair, no thrush Cardiovascular: S1, S2 normal. Respiratory: Good air entry, clear to auscultation bilaterally GI: Soft, non-tender; bowel sounds normal. No peritoneal signs. Musculoskeletal: LLE ruelas redness, warmth. Non-blanching. Skin: No rash or abscess Hem/Lymphatic: No palpable cervical or supraclavicular nodes. No lymphangitis Psych: Mood ok. Affect normal Neurological: Awake, alert, oriented. No gross abnormality - Constitutional Vitals: Vital Signs Temp Pulse Resp BP Pulse Ox 98.7 F 101 H 20 151/83 97 03/09/21 14:48 03/09/21 14:48 03/09/21 14:48 03/09/21 14:48 03/09/21 14:48 Temperature -Last 24 Hours Temperature 98.7 F Temperature 98.7 F Temperature 98.3 F Temperature 99.4 F Temperature 99.6 F Temperature 99.3 F Temperature 98.7 F Results - Labs CBC & Chem 7: 03/09/21 10:17 03/09/21 10:17 Labs: Abnormal lab results 03/08/21 03/09/21 03/09/21 Range/Units 21:06 10:17 10:17 RDW 13.0 L (13.2-15.2) % Carbon % (Auto) 8.3 H (0.0-7.3) % Carbon # (Auto) 0.9 H (0.0-0.8) K/mm3 Seg Neutrophils % 74.1 H (40.0-70.0) % Seg Neutrophils # 8.0 H (1.8-7.7) K/mm3 Glucose 122 H (75-100) mg/dL POC Glucose 119 H (70-105) mg/dL Assessment and Plan Cultures: Blood culture 03/08/2021 no growth so far A/P: 55-year-old man past medical history HIV presented to hospital with left leg cellulitis. #LLE cellulitis: He feels it is improving and pain and redness. Notes having pedicure recently. Improving white count. #HIV: Regularly follows with outpatient ID doctor. Undetectable, CD4 count greater than 700. On Biktarvy. Recs: -On discharge would send with Kejacki abnormal grams every 6 hours to complete 7 days -Added dolutegravir to inpatient medications -Resume home Biktarvy on discharge Thank you for the consult, we will continue to follow. Walter Villanueva MD [facility] O: [phone] F: [phone]
[2021-03-10 07:39] VITALS: BP 146/84
--- NOTE | 2021-03-10 09:14 | Discharge Summary ---
Providers - Providers Date of Admission: 03/08/21 12:31 Date of discharge: 03/10/21 Attending physician: JHONNY OLSON MD 03/09/21 11:10 Consult to Physician [CONS] Routine Comment: Consulting Provider: PETERSON BONILLA Physician Instructions: Reason For Exam: CELLULITIS WITH SIRS Primary care physician: SUPERVISOR AUDIT CLERKS Hospitalization Reason for admission: LLE cellulitis Condition: Stable Hospital course: 55 YO Male with HTN, DM, Asthma, HIV, Obesity Hypoventilation Syndrome, Hyperparathyroidism, Migraine HUDSON, PVD presents to ED for evaulation. Patient reports "my left leg is red and it hurts". Patient states that he has experienced swelling and redness of his left leg over the past 1 week with worsening symptoms over the past 2 days. Patient reports having a vascular surgery procedure to the left lower extremity approximately 1 week ago. Patient reports the pain to the left leg is 3/10, constant, not with exertion, not relieved with rest. Patient acknowledges redness and swelling to the left leg. Patient also acknowledges decreased exercise tolerance. Patient transported to [facility] via private vehicle for further care and evaluation of the aforementioned symptoms. The patient was seen and evaluated in the emergency department. All lab and imaging studies reviewed. Patient found to have cellulitis of the left lower extremity, sepsis, as well as symptoms consistent with CHF decompensation. Patient admitted to medical floor and initiated on sepsis protocol as well as CHF protocol. Patient denies fever, chills, chest pain, palpitation, productive cough, skin rash, recent ill contacts, or known exposure to COVID-19. No prior admission for review. No medication listed at time of admission for reconciliation. 03/09: Continue supportive care. Will obtain ID consult. Echocardiogram has been ordered for further evaluation. We will also check CD4 count to understand HIV status. Imaging studies reviewed no DVT noted. No fractures. Likely underlying diastolic heart failure. Anticipate discharge in a.m. following evaluation by ID. May benefit from physical therapy. (1) Sepsis Current Visit: Yes Status: Acute Qualifiers: Sepsis type: sepsis due to unspecified organism Sepsis acute organ dysfunction status: without acute organ dysfunction Qualified Code(s): A41.9 - Sepsis, unspecified organism Plan to address problem: Sepsis protocol: Chest x-ray, CBC, BMP, urinalysis, IV antibiotic therapy, IV fluid resuscitation therapy, maintain mean arterial pressure greater than or equal to 65, serial lactic acid level. (2) Obesity hypoventilation syndrome Current Visit: Yes Status: Acute Plan to address problem: Balanced diet, increase physical activity at discharge. 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 (4) HIV (human immunodeficiency virus infection) Current Visit: Yes Status: Acute Qualifiers: HIV symptom status: currently asymptomatic, with history of HIV-related illness Qualified Code(s): B20 - Human immunodeficiency virus [HIV] disease Plan to address problem: Outpatient infectious disease follow-up, continue antiretroviral therapy, supportive care. (5) Left leg cellulitis Current Visit: Yes Status: Acute Plan to address problem: IV antibiotic therapy, left lower extremity duplex, supportive care, pain control, (6) HTN (hypertension) Current Visit: Yes Status: Acute Qualifiers: Hypertension type: essential hypertension Qualified Code(s): I10 - Essential (primary) hypertension Plan to address problem: Monitor blood pressure every shift, continue medical management. (7) Diabetes Current Visit: Yes Status: Acute Plan to address problem: Consistent carbohydrate diet, sliding scale insulin therapy, hypoglycemia protocol. (8) DVT prophylaxis Current Visit: Yes Status: Acute Plan to address problem: SCD to bilateral lower extremities while in bed, patient is ambulatory. Patient was seen and evaluated this morning, pain subsided. Swelling markedly subsided. WBC count came back to normal. No fever episodes overnight. Patient was hemodynamically stable and discharged home with Keflex for 7 days per ID recommendation. Patient advised to have follow-up with his primary care physician and ID doctor. Patient will continue with Biktarvy as an outpatient. Patient's questions and concerns were addressed at the bedside. Disposition: DC-01 TO HOME OR SELFCARE Final Discharge Diagnosis (Prints w/discharge instructions): LLE cellulitis Time spent for discharge: 35 minutes - Discharge Diagnoses (1) HIV (human immunodeficiency virus infection) Status: Acute Qualifiers: HIV symptom status: currently asymptomatic, with history of HIV-related illness Qualified Code(s): B20 - Human immunodeficiency virus [HIV] disease (2) HTN (hypertension) Status: Acute Qualifiers: Hypertension type: essential hypertension Qualified Code(s): I10 - Essential (primary) hypertension (3) Left leg cellulitis Status: Acute (4) Obesity hypoventilation syndrome Status: Acute (5) Sepsis Status: Acute Qualifiers: Sepsis type: sepsis due to unspecified organism Sepsis acute organ dysfunction status: without acute organ dysfunction Qualified Code(s): A41.9 - Sepsis, unspecified organism Core Measure Documentation - Palliative Care Palliative Care/ Comfort Measures: Not Applicable - Core Measures Any of the following diagnoses?: none Exam - Physical Exam Narrative exam: Not in cardiopulmonary distress. The patient appeared well nourished and normally developed. Vital signs as documented. Head exam is unremarkable. No scleral icterus . Neck is without jugular venous distension, thyromegaly, or carotid bruits. Lungs are clear to auscultation. Cardiac exam reveals regular rate and Rhythm. Abdominal exam reveals normal bowel sounds, nontender, no organomegaly. Extremities minimal left feet swelling, nontender, per patient it markedly subsided. PHYS THERAPIST: Alert and oriented 3. No focal weakness. - Constitutional Vitals: Temp Pulse Resp BP Pulse Ox 98.6 F 89 16 146/84 96 03/10/21 07:17 03/10/21 07:17 03/10/21 07:17 03/10/21 07:17 03/10/21 07:17 Plan Activity: no restrictions Weight Bearing Status: Full Weight Bearing Diet: low salt, diabetic Follow up with: PRIMARY MD ISABEL [Primary Care Provider] - 3-5 Days Prescriptions: cephALEXin [Keflex] 500 mg PO Q6HR #28 capsule
[2021-03-10] MEDS: MELOXICAM 7.5 MG TAB PO SCH (10:47)
[2021-03-10] MEDS: DOLUTEGRAVIR 50 MG TAB PO SCH (10:48)
[2021-03-10] MEDS: EMTRICITABINE 200 MG CAP PO SCH (10:49)
[2021-03-10] MEDS: LISINOPRIL 10 MG TAB PO SCH (10:49)
[2021-03-10] MEDS: TENOFOVIR 300 MG TAB PO SCH (10:49)
[2021-03-10] MEDS: amLODIPine 5 MG TAB PO SCH (10:50)
--- NOTE | 2021-03-10 14:38 | Progress Note ---
Assessment and Plan Cultures: Blood culture 03/08/2021 no growth so far A/P: 55-year-old man past medical history HIV presented to hospital with left leg cellulitis. #LLE cellulitis: He feels it is improving and pain and redness. Notes having pedicure recently. Improving white count. #HIV: Regularly follows with outpatient ID doctor. Undetectable, CD4 count greater than 700. On Biktarvy. Recs: -On discharge would send with Keflex 500mg every 6 hours to complete 7 days -Continue tenofovir, ampicillin, dolutegravir inpatient -Resume home Biktarvy on discharge Thank you for the consult, we will continue to follow. Walter Villanueva MD [facility] ([facility]) O: [phone] F: [phone] Subjective Date of service: 03/10/21 Interval history: Afebrile, doing well. No acute complaints today. Objective - Exam Narrative Exam: Physical Exam: Constitutional: Alert, cooperative. No acute distress Head, Ears, Nose: Normocephalic, atraumatic. External ears, nose normal Eyes: Conjunctivae/corneas clear. No icterus. No ptosis. Neck: Supple, no meningeal signs Oral: dentition fair, no thrush Cardiovascular: S1, S2 normal. Respiratory: Good air entry, clear to auscultation bilaterally GI: Soft, non-tender; bowel sounds normal. No peritoneal signs. Musculoskeletal: LLE ruelas redness, warmth. Non-blanching. Skin: No rash or abscess Hem/Lymphatic: No palpable cervical or supraclavicular nodes. No lymphangitis Psych: Mood ok. Affect normal Neurological: Awake, alert, oriented. No gross abnormality - Constitutional Vitals: Vital Signs Temp Pulse Resp BP Pulse Ox 98.6 F 89 16 146/84 96 03/10/21 07:17 03/10/21 10:50 03/10/21 07:17 03/10/21 10:50 03/10/21 07:17 Temperature -Last 24 Hours Temperature 98.6 F Temperature 98.7 F Temperature 98.7 F Temperature 98.7 F Temperature 98.7 F Temperature 98.7 F - Labs CBC & Chem 7: 03/09/21 10:17 03/09/21 10:17
[2021-03-12 14:32] LABS: CD4/CD8 Ratio 1.13 (0.86-5.00)
== END 2021-03-10 15:44 | disposition home or self-care (01) | DRG 974 ==
LOC: ED 23:35 → 3A 03-08 12:31 → 3B-SURG 03-08 20:46
PROVIDERS: ADMIT Internal Medicine; ATTEND Internal Medicine
DX: A41.9 Sepsis, unspecified organism (principal); I50.21 Acute systolic (congestive) heart failure; B20 Human immunodeficiency virus [HIV] disease; E66.2 Morbid (severe) obesity with alveolar hypoventilation; L03.116 Cellulitis of left lower limb; E11.9 Type 2 diabetes mellitus without complications; G43.909 Migraine, unspecified, not intractable, without status migrainosus; I87.2 Venous insufficiency (chronic) (peripheral); I11.0 Hypertensive heart disease with heart failure; J45.909 Unspecified asthma, uncomplicated; E21.3 Hyperparathyroidism, unspecified; E11.51 Type 2 diabetes mellitus with diabetic peripheral angiopathy without gangrene; Z68.34 Body mass index [BMI] 34.0-34.9, adult; Z71.3 Dietary counseling and surveillance; Z79.899 Other long term (current) drug therapy; Z83.3 Family history of diabetes mellitus; Z82.49 Family history of ischemic heart disease and other diseases of the circulatory system
CPT/HCPCS: 36415; 71046; 80048; 80053; 81001; 82024; 82140; 82962; 83880; 85007; 85025; 86850; 86900; 86901; 87040; 93306; 96365; 96375; G0378; A9270-GY; J0690; J2270; J7030